=== PATIENT | female | born 1975 | race Caucasian/White ===

== ENCOUNTER 2022-08-29 23:10 | Emergency (ER) | payer SELFPAY ==
[~2022-08-29] VITALS: Ht 162.6 cm; Wt 91.0 kg
[2022-08-29 23:14] VITALS: O2SAT 99
[2022-08-30 00:41] LABS: BASOPHILS % 0.3 % (0.0-2.0); HEMATOCRIT. 46.7 % (36.0-48.0); HEMOGLOBIN. 15.7 g/dL (12.0-16.0); LYMPHOCYTES % 19.2 % (20.0-50.0); MEAN CORPUSCULAR HEMOGLOBIN 30.8 pg (28.0-32.0); MEAN CORPUSCULAR VOLUME 91.4 fL (81.0-99.0); MEAN PLATELET VOLUME 7.4 fl (7.4-10.4); MONOCYTES % 6.1 % (2.0-8.0); NEUTROPHILS % 73.4 % (40.0-76.0); PLATELET 323 x1000/uL (130-400); RED BLOOD CELL COUNT 5.11 mill/uL (4.2-5.4); RED CELL DISTRIBUTION WIDTH 13.5 % (11.6-14.6)
[2022-08-30 00:52] LABS: HCG SCREEN NEGATIVE
[2022-08-30 00:56] LABS: CHLORIDE 106 mEq/L (98-107)
[2022-08-30 06:13] VITALS: BP 125/81; PULSE 77; RESP 16; TEMP 98.2
== END 2022-08-30 06:29 | disposition home or self-care (01) ==
LOC: ER 23:10
DX: R55 Syncope and collapse (principal); R42 Dizziness and giddiness; E11.9 Type 2 diabetes mellitus without complications; I10 Essential (primary) hypertension; I25.2 Old myocardial infarction
CPT/HCPCS: 99285; 80053; 84703; 85025; 36415; 71045; 70450; 93005; Z7610 ×2